=== PATIENT | male | born 1990 | race Asian ===

== ENCOUNTER 2016-11-26 21:12 | Emergency (ER) | payer BC, OTHER ==
[2016-11-26 21:37] LABS: BASOPHIL % 0.4 % (0-2); PLATELET COUNT 265 x10^3mcL (130-400); RED CELL DISTRIBUTION WIDTH 13.4 % (11.5-14.5)
[2016-11-26 21:46] LABS: CALCIUM 9.1 mg/dL (8.5-10.1); CARBON DIOXIDE 30.4 mmol/L (21-32); CHLORIDE SERUM 99 mmol/L (98-107); CREATININE SERUM 0.9 mg/dL (0.7-1.3); GFR1 > 60 mL/min; GLUCOSE SERUM 113 mg/dL (74-106); POTASSIUM SERUM 3.6 mmol/L (3.5-5.1); SODIUM SERUM 138 mmol/L (136-145)
[2016-11-26 23:18] VITALS: BP 129/79
== END 2016-11-26 23:18 | disposition home or self-care (01) ==
LOC: ED 21:12
PROVIDERS: Emergency Medicine
DX: E86.0 Dehydration (principal); M79.1 Myalgia
CPT/HCPCS: J1885; J7030